=== PATIENT | male | born 1955 | race Caucasian/White ===

== ENCOUNTER → 2018-07-29 08:39 | Outpatient (CLI) | payer OTHER, SELFPAY ==
--- NOTE | 2018-07-29 09:02 | MR_ITS ---
MR head/brain wo/w con HISTORY: Severe headache, brain mass, history of colon cancer ITS.REASON: HEADACHE ORDERING PHYSICIAN: Referral Provider, PATIENT AGE: 63 years Comparison: None TECHNIQUE: Standard multiplanar multiecho sequences are performed without and with contrast enhancement. FINDINGS: No midline shift, mass effect, intracranial hemorrhage, or hydrocephalus is evident. No evidence of acute infarction. No enhancing lesions are evident. No intra or extra-axial mass apparent. Nonspecific periventricular and subcortical T2 white matter hyperintensities are present consistent with ischemic gliotic change from microvascular disease. The pituitary optic Anai and craniocervical junction have an unremarkable appearance. There is opacification of the left aspect of the frontal sinus and the sphenoid sinus as well as opacified bilateral ethmoid sinuses and moderate mucosal thickening of the maxillary sinuses. No mastoid effusion. IMPRESSION: 1. No acute intracranial findings. No evidence of metastatic disease. 2. Pansinusitis 3. 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
[2018-07-29 09:10] LABS: Blood Urea Nitrogen 16 mg/dL (7-18); Creatinine,Serum 0.89 mg/dL (0.70-1.30); Estimated Glomerular Filt Rate 86 ml/min (>60); GFR (African American) 104 ML/MIN (>60)
--- NOTE | 2018-07-29 10:00 | HMH.ITSHM ---
Current Home Medications as stated by this patient Holden Ashraf or access representative. []ATENOLOL WARFARIN ATORVASTATIN LISINOPRIL ALFUZOSIN FINASTERIDE RANITIDINE CHOLECALCIFEROL HYDROCODONE
== END ==
PROVIDERS: PCP Family Medicine
DX: R51 Headache (principal)
CPT/HCPCS: 36415; 70553; 82565; 84520; A9576

== ENCOUNTER 2022-11-15 14:58 | Observation (INO) | payer OTHER, SELFPAY ==
[2022-11-15] VITALS (10 sets, daily range): BP systolic 120–208; BP diastolic 61–117; PULSE 60–74; RESP 11–20; TEMP 36.6; O2SAT 98–100; BMI 39.0
--- NOTE | 2022-11-15 15:02 | PC.NURSE ---
BO STEELE at for patient eval
--- NOTE | 2022-11-15 15:04 | ECG_ITS ---
APPROVED REPORT Exam: Resting ECG HR:72 bpm ECG Measurements Heart Rate 72 AXES DC 188 P 66 QRSd 106 QRS 74 QT 372 T 75 QTc 396 Conclusion SINUS RHYTHM NORMAL ECG UNCONFIRMED REPORT Electronically signed by : Clay Pascual MD 11/16/2022 15:52:26
--- NOTE | 2022-11-15 15:08 | PC.NURSE ---
MARIVEL Hopkins called for a lunch tray
--- NOTE | 2022-11-15 15:09 | PC.NURSE ---
pt given apple juice and is drinking at this time
--- NOTE | 2022-11-15 15:10 | HMH.EDGENADL ---
Discharge Plan Disposition Condition: Good Chief Complaint: Hyper/Hypoglycemia Referrals Follow up/Referrals: Provider,Referral, [Primary Care Provider] - See instructions Clinical Impressions Clinical Impression: Accidental overdose of insulin, Hypoglycemia Instructions Patient Instructions: DI for Hyperglycemia -- Adult Discharge ED Provider: Izzy Metcalf Adult HPI General Chief complaint: Hyper/Hypoglycemia Stated complaint: medication error Time Seen by Provider: 11/15/22 15:00 Mode of Arrival: EMS Source of Information: Patient and EMS Limitations: No Limitations History of Present Illness HPI narrative: 67-year-old male presenting to the emergency department after accidental insulin overdose. Incident happened approximately 20 minutes prior to arrival. He was trying to take his migraine medication out of the fridge when he accidentally grabbed his sister's insulin pen. He believes he injected the full amount. Realized his mistake and called 911. When EMS arrived his blood glucose is 160 mg/dL. No medications given prior to arrival. He does not have diabetes. Complaining of dry mouth. Denies weakness, tremulousness, nausea, vomiting. Says this was unintentional. No thoughts of hurting himself. Related Data Allergies Allergy/AdvReac Type Severity Reaction Status Date / Time morphine Allergy Unknown Verified 11/15/22 15:17 [facility] Disclaimer: The information contained in this section may have been updated after the patient was seen, as this information can be updated by other users. Social History Smoking Status: Never smoker alcohol intake: never current occupational status: retired Travel in the last 8 weeks: None ROS Obtained: Yes All systems reviewed & no additional complaints except as documented Constitutional Constitutional: Denies chills, Denies fatigue and Denies headache(s) ENT Ears, Nose, Mouth, and Throat: Denies headache(s) Neurologic Neurologic: Denies headache(s) Endocrine Endocrine: Denies fatigue Physical Exam General General appearance: alert, in no apparent distress and other (Some repetitive questioning) Head Head exam: atraumatic Eye Eye exam: Present normal appearance and EOMI; Absent conjunctival redness ENT ENT exam: Present normal exam and normal oropharynx Respiratory Respiratory exam: Present normal lung sounds bilaterally; Absent respiratory distress or wheezes Cardiovascular Cardiovascular exam: Present regular rate and normal rhythm Abdominal Exam Abdominal exam: Present soft; Absent distention Extremities Exam Extremities exam: Present normal inspection Neurological Exam Neurological exam: Present alert, oriented X3 and other (Some repetitive questioning.) Psychiatric Psychiatric exam: Present normal affect and normal mood Skin Skin exam: Present warm and dry Medical Decision Making Medical Records Medical records reviewed: Yes I reviewed the patient's medical records. Deuce Inquiry Pt receiving controlled substance: No Vital Signs: 11/15/22 15:12 11/15/22 15:31 11/15/22 16:01 Temperature 97.9 F Temperature Source Oral Pulse Rate 71 68 Pulse Rate [Right] 74 Respiratory Rate 18 14 Blood Pressure 153/76 H 143/78 H Blood Pressure [Right Arm] 208/117 H Blood Pressure Mean 101 91 Blood Pressure Mean [Right Arm] 147 02 Sat by Pulse Oximetry 99 100 99 Oxygen Delivery Method Room Air Room Air Room Air 11/15/22 17:01 11/15/22 17:31 Temperature Temperature Source Pulse Rate 70 71 Pulse Rate [Right] Respiratory Rate Blood Pressure 130/70 147/70 H Blood Pressure [Right Arm] Blood Pressure Mean 90 80 Blood Pressure Mean [Right Arm] 02 Sat by Pulse Oximetry 100 100 Oxygen Delivery Method Room Air Room Air Lab Data Lab Results 11/15/22 15:04: WBC 7.6, RBC 4.55 L, Hgb 14.8, Hct 44.9, MCV 98.7 H, MCH 32.5 H, MCHC 33.0, RDW 13.5, Plt Count 260, MPV 7.8, Neut % (Auto) 60.6, Lymph % (Auto)
--- NOTE | 2022-11-15 15:18 | PC.NURSE ---
FS 14:59 = 36, VO for amp D50 and D10 @ 125ml/hr. Recheck FS @ 15:08 = 161. PO provided.
--- NOTE | 2022-11-15 15:27 | PC.NURSE ---
FS 111
--- NOTE | 2022-11-15 15:36 | PC.NURSE ---
MD notified of awaiting lab orders, however blood collected upon arrival and sent to lab.
--- NOTE | 2022-11-15 15:42 | PC.NURSE ---
FS 100 post-prandial
[2022-11-15 15:45] LABS: Basophils # 0.1 K/mm3 (0-0.2); Eosinophils # 0.3 K/mm3 (0.0-0.4); Eosinophils % 3.9 % (0.1-12.0); Hematocrit 44.9 % (42.0-52.0); Hemoglobin 14.8 g/dL (14.1-18.0); Lymphocytes # 2.3 K/mm3 (0.7-4.5); Lymphocytes % 30.5 % (10-50); Mean Corpuscular Hemoglobin 32.5 pg (27.0-31.2); Mean Corpuscular Volume 98.7 fl (80-94); Mean Platelet Volume 7.8 fl (7.4-10.4); Monocytes # 0.3 K/mm3 (0.1-1.0); Neutrophils # 4.6 K/mm3 (1.8-7.8); Neutrophils % 60.6 % (37.0-80.0); Platelet Count 260 K/mm3 (142-424); Red Blood Count 4.55 M/mm3 (4.60-6.20); Red Cell Distribution Width 13.5 % (11.5-17.5); White Blood Count 7.6 K/mm3 (4.8-10.8)
--- NOTE | 2022-11-15 15:46 | PC.NURSE ---
FS 100. notified. VO to increased D10 to 225ml/hr.
[2022-11-15 15:49] LABS: POC Glucose,Bedside 100 (70-110)
[2022-11-15 15:49] LABS: POC Glucose,Bedside 161 (70-110)
[2022-11-15 15:49] LABS: POC Glucose,Bedside 111 (70-110)
[2022-11-15 15:53] LABS: Chloride 105 mmol/L (98-107)
[2022-11-15 15:54] LABS: Sodium 141 mmol/L (136-145)
[2022-11-15 15:56] LABS: Alanine Aminotransferase 25 U/L (12-78); Aspartate Amino Transferase 41 U/L (17-59); Blood Urea Nitrogen 22 mg/dl (9-20); Creatinine Clearance Estimated 114 mL/min (50-200); Estimated Glomerular Filt Rate 66 ml/min (>60); GFR (African American) 80 ML/MIN (>60)
[2022-11-15 15:57] LABS: Albumin Level 4.1 g/dl (3.5-5.0); Albumin/Globulin Ratio 1.2 (1.1-1.8); Alkaline Phosphatase 56 U/L (38-126); Bilirubin,Total 0.6 mg/dl (0.2-1.3); Calcium 8.7 mg/dl (8.4-10.2); Globulin 3.5 g/dL (1.3-3.2); Total Protein,Serum 7.6 g/dl (6.3-8.2)
--- NOTE | 2022-11-15 15:57 | PC.NURSE ---
critical potassium level given to ER at this time
--- NOTE | 2022-11-15 15:57 | PC.NURSE ---
FS 94. notified. D10 titrated 250ml/hr
[2022-11-15 15:59] LABS: Glucose 26 mg/dl (74-100)
--- NOTE | 2022-11-15 15:59 | PC.NURSE ---
New VO for maintain D10 @ 250ml/hr. If FS below 75, give amp of D50. Sprite provided. Patient/ updated on plan of care.
[2022-11-15 16:03] LABS: POC Glucose,Bedside 94 (70-110)
[2022-11-15 16:03] LABS: Carbon Dioxide 30 mmol/L (22.0-30.0)
[2022-11-15 16:23] LABS: POC Glucose,Bedside 96 (70-110)
--- NOTE | 2022-11-15 16:34 | PC.NURSE ---
FS 95. Pt ambulated to bathroom with standby assist.
[2022-11-15 16:39] LABS: POC Glucose,Bedside 95 (70-110)
--- NOTE | 2022-11-15 17:02 | PC.NURSE ---
fs 90
[2022-11-15 17:08] LABS: POC Glucose,Bedside 90 (70-110)
--- NOTE | 2022-11-15 17:30 | PC.NURSE ---
swabbed pt for covid/flu sent to lab
[2022-11-15 17:34] LABS: Coronavirus 19, PCR Not Detected (NotDetected); Influenza A, PCR Not Detected (NotDetected); Influenza B, PCR Not Detected (NotDetected)
[2022-11-15 17:38] LABS: POC Glucose,Bedside 77 (70-110)
--- NOTE | 2022-11-15 17:41 | PC.NURSE ---
FS 77 Candy bar provided with orange juice.
[2022-11-15 18:09] LABS: POC Glucose,Bedside 82 (70-110)
--- NOTE | 2022-11-15 18:22 | PC.NURSE ---
FS 84
--- NOTE | 2022-11-15 18:22 | PC.NURSE ---
Patient updated on plan of care; admission.
[2022-11-15 18:28] LABS: POC Glucose,Bedside 84 (70-110)
--- NOTE | 2022-11-15 18:33 | PC.NURSE ---
Elly everett at bedside speaking to pt
--- NOTE | 2022-11-15 18:38 | PC.NURSE ---
[facility]
--- NOTE | 2022-11-15 18:47 | PC.NURSE ---
checked pt sugar it was 91 notified MARIVEL Saunders
--- NOTE | 2022-11-15 18:51 | PC.NURSE ---
Report provided to MARIVEL Alberto
[2022-11-15 18:52] LABS: POC Glucose,Bedside 91 (70-110)
[2022-11-15 19:12] LABS: POC Glucose,Bedside 88 (70-110)
--- NOTE | 2022-11-15 19:29 | PC.NURSE ---
Halie ORTA on 2nd floor notified of covid negative swab. States she is proceeding to ER to collect pt.
--- NOTE | 2022-11-15 19:43 | PC.NURSE ---
Samuel from poison control called for an update. Let her know that pt was being admitted to 2nd floor. Stated she would call the floor for further updates.
--- NOTE | 2022-11-15 20:05 | PC.NURSE ---
JOSE GUADALUPE Osorio at bedside speaking with pt
--- NOTE | 2022-11-15 20:28 | EXP.HP ---
History of Present Illness *Admission Date: 11/15/22 *Reason for visit:: Accidental overdose *History of present illness: This is a very pleasant 67-year-old male with a past medical history of PTSD, atrial fibrillation on Xarelto, hypertension, migraines who presents emergency department today with complaints of accidental overdose of insulin. Patient is not diabetic but was attempting to inject his Imitrex for his migraine and accidentally injected himself with his 's insulin pen. It is reported that the pen is approximately 500 units of insulin and he believes that he injected it in its entirety. As soon as patient realized mistake EMS was notified. Upon arrival to the emergency department his blood glucose was in the 20s. Poison center was called and recommends 8 hours of observation with frequent glucose checks and IV dextrose. Patient denies any confusion, diaphoresis, nausea with associated hypoglycemia. He reports that he feels at his baseline. He is admitted to the hospital service for further evaluation management. [facility] Disclaimer: The information contained in this section may have been updated after the patient was seen, as this information can be updated by other users. Social History (Updated 11/15/22 @ 18:00 by Izzy Metcalf DO) Smoking Status: Never smoker alcohol intake: never current occupational status: retired Travel in the last 8 weeks: None Review of Systems Review of Systems Review of systems:: pertinent systems reviewed and negative unless documented below Constitutional Constitutional: Denies headache(s) ENT Ears, Nose, Mouth, and Throat: Denies headache(s) *Neurologic Neurologic: Denies headache(s) Meds Home Medications and Allergies New Prescriptions to Start Prescriptions: Allergies Allergy/AdvReac Type Severity Reaction Status Date / Time morphine Allergy Unknown Verified 11/15/22 15:17 Exam Data for Last 24 hours Vital signs and Labs for Last 24 Hours: Temp Pulse Resp BP Pulse Ox 97.9 F 65 11 L 125/65 100 11/15/22 15:12 11/15/22 20:00 11/15/22 20:00 11/15/22 20:00 11/15/22 20:00 Laboratory Results - last 24 hr 11/15/22 15:04: WBC 7.6, RBC 4.55 L, Hgb 14.8, Hct 44.9, MCV 98.7 H, MCH 32.5 H, MCHC 33.0, RDW 13.5, Plt Count 260, MPV 7.8, Neut % (Auto) 60.6, Lymph % (Auto) 30.5, [place] % (Auto) 4.0, Eos % (Auto) 3.9, Baso % (Auto) 1.0, Neut # (Auto) 4.6, Lymph # (Auto) 2.3, [place] # (Auto) 0.3, Eos # (Auto) 0.3, Baso # (Auto) 0.1 11/15/22 15:04: Sodium 141, Potassium 3.0 L, Chloride 105, Carbon Dioxide 30, Anion Gap 9.0, BUN 22 H, Creatinine 1.10, Estimated Creat Clear 114, Estimated GFR 66, Est GFR ( Amer) 80, Glucose 26 L*, Calcium 8.7, Total Bilirubin 0.6, AST 41, ALT 25, Alkaline Phosphatase 56, Total Protein 7.6, Albumin 4.1, Globulin 3.5 H, Albumin/Globulin Ratio 1.2 11/15/22 15:11: POC Glucose 161 H 11/15/22 15:26: POC Glucose 111 H 11/15/22 15:41: POC Glucose 100 11/15/22 15:56: POC Glucose 94 11/15/22 16:15: POC Glucose 96 11/15/22 16:30: POC Glucose 95 11/15/22 17:01: POC Glucose 90 11/15/22 17:25: SARS-CoV-2 (PCR) Not detected, Influenza A Untype (PCR) Not detected, Influenza Type B (PCR) Not detected 11/15/22 17:30: POC Glucose 77 11/15/22 18:03: POC Glucose 82 11/15/22 18:20: POC Glucose 84 11/15/22 18:46: POC Glucose 91 11/15/22 19:05: POC Glucose 88 I & O for Last 24 hours: Intake & Output 11/12/22 11/13/22 11/14/22 11/15/22 23:59 23:59 23:59 23:59 Weight 127.006 kg Constitutional Constitutional: no acute distress *Routine HEENT Exam Head: Present normocephalic Eye: Present EOMI and PERRL ENT: Present mucous membranes moist *Routine Neck Exam Neck: Present supple; Absent lymphadenopathy *Routine Respiratory Exam Respiratory: Present CTA bilaterally *Routine Cardiovascular Exam Cardiovascular: Present RRR *Routine Abdominal Exam Abdominal: Present soft and normoactive bowel sounds; Absent tenderness *Routine R
[2022-11-15 20:56] LABS: POC Glucose,Bedside 78 (70-110)
--- NOTE | 2022-11-15 21:14 | PC.NURSE ---
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
--- NOTE | 2022-11-15 22:22 | PC.NURSE ---
pt had bipap on for approximately 15 minutes and pt requested it be removed, pt unable to wear that mask, pt states has ptsd and unable to wear this particular mask as his at home is much smaller and less noisy
[2022-11-15 22:38] LABS: Chloride 102 mmol/L (98-107); Potassium 3.3 mmoL/L (3.5-5.1); Sodium 140 mmol/L (136-145)
[2022-11-15 22:41] LABS: Anion Gap 12.3 mEq/L (5-15); Blood Urea Nitrogen 19 mg/dl (9-20); Calcium 8.5 mg/dl (8.4-10.2); Carbon Dioxide 29 mmol/L (22.0-30.0); Creatinine Clearance Estimated 125 mL/min (50-200); Estimated Glomerular Filt Rate 74 ml/min (>60); GFR (African American) 90 ML/MIN (>60); Glucose 51 mg/dl (74-100)
[2022-11-16] VITALS: BP 137/67; PULSE 74; PULSE 90; RESP 18; TEMP 36.7; O2SAT 98
[2022-11-16 02:00] VITALS: BP 141/70; PULSE 74; RESP 13; O2SAT 97
[2022-11-16 02:34] LABS: POC Glucose,Bedside 79 (70-110)
[2022-11-16 02:34] LABS: POC Glucose,Bedside 58 (70-110)
[2022-11-16 02:34] LABS: POC Glucose,Bedside 63 (70-110)
[2022-11-16 02:34] LABS: POC Glucose,Bedside 50 (70-110)
[2022-11-16 02:34] LABS: POC Glucose,Bedside 66 (70-110)
[2022-11-16 03:57] LABS: POC Glucose,Bedside 52 (70-110)
[2022-11-16 04:00] VITALS: BP 112/57; PULSE 70; RESP 23; TEMP 36.9; O2SAT 99; BMI 39.2
[2022-11-16 05:58] LABS: POC Glucose,Bedside 63 (70-110)
[2022-11-16 05:58] LABS: POC Glucose,Bedside 70 (70-110)
[2022-11-16 05:58] LABS: POC Glucose,Bedside 53 (70-110)
[2022-11-16 06:00] VITALS: BP 138/70; PULSE 62; RESP 20; O2SAT 96
[2022-11-16 06:15] LABS: Basophils # 0.1 K/mm3 (0-0.2); Basophils % 0.7 % (0.1-2.0); Eosinophils % 0.4 % (0.1-12.0); Hematocrit 42.4 % (42.0-52.0); Hemoglobin 13.5 g/dL (14.1-18.0); Lymphocytes # 0.6 K/mm3 (0.7-4.5); Lymphocytes % 7.2 % (10-50); Mean Corpuscular HGB Conc 31.9 g/dL (31.8-35.4); Mean Corpuscular Hemoglobin 32.4 pg (27.0-31.2); Mean Corpuscular Volume 101.5 fl (80-94); Mean Platelet Volume 7.3 fl (7.4-10.4); Monocytes # 0.4 K/mm3 (0.1-1.0); Monocytes % 4.5 % (1.7-9.3); Neutrophils # 7.4 K/mm3 (1.8-7.8); Neutrophils % 87.2 % (37.0-80.0); Platelet Count 231 K/mm3 (142-424); Red Blood Count 4.17 M/mm3 (4.60-6.20); Red Cell Distribution Width 13.4 % (11.5-17.5); White Blood Count 8.4 K/mm3 (4.8-10.8)
[2022-11-16 06:16] LABS: MANUAL DIFFERENTIAL MANUAL DIFFERENTIAL (MANUAL DIFF)
[2022-11-16 06:22] LABS: Anion Gap 8.4 mEq/L (5-15); Blood Urea Nitrogen 18 mg/dl (9-20); Calcium 8.3 mg/dl (8.4-10.2); Carbon Dioxide 25 mmol/L (22.0-30.0); Chloride 104 mmol/L (98-107); Creatinine Clearance Estimated 125 mL/min (50-200); Estimated Glomerular Filt Rate 84 ml/min (>60); GFR (African American) 101 ML/MIN (>60); Glucose 57 mg/dl (74-100); Potassium 3.4 mmoL/L (3.5-5.1); Sodium 134 mmol/L (136-145)
[2022-11-16 07:48] LABS: Lymphocytes % 5 % (10-50); Monocytes % 4 % (2-9); Neutrophils % 91 % (42-76); Platelet Estimate Normal; RBC Morphology Normal; Total Cells Counted 100
[2022-11-16 08:00] VITALS: BP 136/73; PULSE 62; PULSE 70; RESP 18; TEMP 36.7; O2SAT 100; O2SAT 99
[2022-11-16 10:00] VITALS: BP 116/62; PULSE 64; RESP 17; O2SAT 97
[2022-11-16 10:29] LABS: POC Glucose,Bedside 70 (70-110)
[2022-11-16 10:29] LABS: POC Glucose,Bedside 80 (70-110)
[2022-11-16 10:29] LABS: POC Glucose,Bedside 99 (70-110)
[2022-11-16 10:29] LABS: POC Glucose,Bedside 94 (70-110)
--- NOTE | 2022-11-16 11:03 | EXP.DC.SUM ---
General Admission date:: 11/15/22 Discharge date: 11/16/22 HPI HPI HPI: This is a very pleasant 67-year-old male with a past medical history of PTSD, atrial fibrillation on Xarelto, hypertension, migraines who presents emergency department today with complaints of accidental overdose of insulin. Patient is not diabetic but was attempting to inject his Imitrex for his migraine and accidentally injected himself with his 's insulin pen. It is reported that the pen is approximately 500 units of insulin and he believes that he injected it in its entirety. As soon as patient realized mistake EMS was notified. Upon arrival to the emergency department his blood glucose was in the 20s. Poison center was called and recommends 8 hours of observation with frequent glucose checks and IV dextrose. Patient denies any confusion, diaphoresis, nausea with associated hypoglycemia. He reports that he feels at his baseline. He is admitted to the hospital service for further evaluation management. Hospital Course Hospital Course Hospital Course: The patient was admitted to the medical unit with frequent glucose evaluations. He was treated with dextrose therapy. He was allowed to consume calories. His blood sugars improved and the patient identified improvement. He inquired about discharge home. He plans to be more cognizant of medication administration in the future. I have recommended a PCP follow-up in 1 week. Exam Data for Last 24 hours Vital signs and Labs for Last 24 Hours: Temp Pulse Resp BP Pulse Ox 98.1 F 64 17 116/62 97 11/16/22 08:00 11/16/22 10:00 11/16/22 10:00 11/16/22 10:00 11/16/22 10:00 Laboratory Results - last 24 hr 11/15/22 15:04: WBC 7.6, RBC 4.55 L, Hgb 14.8, Hct 44.9, MCV 98.7 H, MCH 32.5 H, MCHC 33.0, RDW 13.5, Plt Count 260, MPV 7.8, Neut % (Auto) 60.6, Lymph % (Auto) 30.5, [place] % (Auto) 4.0, Eos % (Auto) 3.9, Baso % (Auto) 1.0, Neut # (Auto) 4.6, Lymph # (Auto) 2.3, [place] # (Auto) 0.3, Eos # (Auto) 0.3, Baso # (Auto) 0.1 11/15/22 15:04: Sodium 141, Potassium 3.0 L, Chloride 105, Carbon Dioxide 30, Anion Gap 9.0, BUN 22 H, Creatinine 1.10, Estimated Creat Clear 114, Estimated GFR 66, Est GFR ( Amer) 80, Glucose 26 L*, Calcium 8.7, Total Bilirubin 0.6, AST 41, ALT 25, Alkaline Phosphatase 56, Total Protein 7.6, Albumin 4.1, Globulin 3.5 H, Albumin/Globulin Ratio 1.2 11/15/22 15:11: POC Glucose 161 H 11/15/22 15:26: POC Glucose 111 H 11/15/22 15:41: POC Glucose 100 11/15/22 15:56: POC Glucose 94 11/15/22 16:15: POC Glucose 96 11/15/22 16:30: POC Glucose 95 11/15/22 17:01: POC Glucose 90 11/15/22 17:25: SARS-CoV-2 (PCR) Not detected, Influenza A Untype (PCR) Not detected, Influenza Type B (PCR) Not detected 11/15/22 17:30: POC Glucose 77 11/15/22 18:03: POC Glucose 82 11/15/22 18:20: POC Glucose 84 11/15/22 18:46: POC Glucose 91 11/15/22 19:05: POC Glucose 88 11/15/22 19:51: POC Glucose 78 11/15/22 20:59: POC Glucose 66 L 11/15/22 22:13: Sodium 140, Potassium 3.3 L, Chloride 102, Carbon Dioxide 29, Anion Gap 12.3, BUN 19, Creatinine 1.00, Estimated Creat Clear 125, Estimated GFR 74, Est GFR ( Amer) 90, Glucose 51 L D, Calcium 8.5, Magnesium 2.0 11/15/22 23:00: POC Glucose 58 L 11/16/22 00:05: POC Glucose 50 L 11/16/22 01:15: POC Glucose 79 11/16/22 01:57: POC Glucose 63 L 11/16/22 03:11: POC Glucose 52 L 11/16/22 04:11: POC Glucose 53 L 11/16/22 05:07: POC Glucose 63 L 11/16/22 05:40: WBC 8.4, RBC 4.17 L, Hgb 13.5 L, Hct 42.4, MCV 101.5 H, MCH 32.4 H, MCHC 31.9, RDW 13.4, Plt Count 231, MPV 7.3 L, Neut % (Auto) 87.2 H, Lymph % (Auto) 7.2 L, [place] % (Auto) 4.5, Eos % (Auto) 0.4, Baso % (Auto) 0.7, Neut # (Auto) 7.4, Lymph # (Auto) 0.6 L, [place] # (Auto) 0.4, Eos # (Auto) 0.0, Baso # (Auto) 0.1, Total Counted 100, Neutrophils % (Manual) 91 H, Lymphocytes % (Manual) 5 L, Monocytes % (Manual) 4, Platelet Estimate Normal, RBC Morphology Normal 11/16/22 05:40: Sodium 134 L, Potassium 3.4 L, Chloride 104, Carbon
--- NOTE | 2022-11-16 11:13 | HMH.PHAINT1 ---
Pharmacy Intervention Comments: DISCHARGE MEDICATION COUNSELING PROVIDED. DISCUSSED THAT THERE WERE NO CHANGES TO CURRENT MEDICATION REGIMEN. PATIENT VERBALIZED NO QUESTIONS AT THIS TIME.
--- NOTE | 2022-11-19 13:56 | CARE MANAGER ---
Spoke with patient for post-discharge phone interview, no issues noted.
== END 2022-11-16 11:42 | disposition home or self-care (01) ==
LOC: ER 15:48 → 2ND 18:31
PROVIDERS: Nurse Practitioner Acute Care; Admitting Provider Family Medicine; Emergency Provider Emergency Medicine; Visit Provider Family Medicine
DX: T38.3X1A Poisoning by insulin and oral hypoglycemic [antidiabetic] drugs, accidental (unintentional), initial encounter (principal); E16.0 Drug-induced hypoglycemia without coma; I48.91 Unspecified atrial fibrillation; Z79.01 Long term (current) use of anticoagulants; F43.10 Post-traumatic stress disorder, unspecified; G43.909 Migraine, unspecified, not intractable, without status migrainosus; Y92.019 Unspecified place in single-family (private) house as the place of occurrence of the external cause
CPT/HCPCS: G0378; 36415; 80048; 80053; 82962; 83735; 85007; 85025; 93005; 99291; C9803; J2354; U0003; U0005

== ENCOUNTER 2023-10-29 14:34 | Outpatient (CLI) | payer OTHER, SELFPAY ==
--- NOTE | 2023-10-29 14:38 | CA_ITS ---
APPROVED REPORT EXAM: Comprehensive 2D, Doppler, and color-flow Echocardiogram Sales Operations Assistant: RENATO Singh, RVS Ht: 5 ft 10 in Wt: 370lbs BSA: 2.71 BP: 150/90 mmHg Indications: Hx-Afib s/p ablation 1 year ago, Ischemic heart disease, HTN, Obesity Echo Enhancing Agent Comments: TDS: Poor acoustics secondary to Body habitus 2D Dimensions IVSd 1.41 cm M: 0.6-1.2 LVEF (Visual) 55.00 % PWd 1.45 cm M: 0.6 - 1.2 LA Volume 112.40 mL LVDd 5.65 cm M: 4.2 - 5.9 LA Volume Index [id number] mL/m2 (M/F) 16-34 LVDs 3.27 cm M: 2.5 - 4.0 Left Atrium 4.97 cm M: 3.0 - 4.0 M-Mode Dimensions RVDd 1.65 cm (0.9-2.6) LA Diam 5.47 cm (1.9-4.0) LVDd 5.65 cm (3.5-5.7) LVDs 5.12 cm (3.5-5.7) IVSd 1.49 cm (0.6-1.1) PWd 1.09 cm (0.6-1.1) EF (Teich) 45.10% EPSs 1.03 cm FS 23.00% EDV (Teich) 227.50 mL TAPSE 3.01 (<1.7) ESV (Teich) 124.90 mL LV Diastology E Decel Time 213 (160-240 msec) E/A Ratio 2.43 MED A' 8.00 cm/s LAT A' 6.60 cm/s Aortic Valve SELENA Index 0.60 cm2/m2 AoV Peak Brendan. 164.0 (50-130 cm/s) AO Peak GR. 10.90 mmHg AO Mean GR. 5.40 (<5 mmHg) AO VTI 32.9 (18-25 cm) SELNEA (VTI) 1.67 (2.5-4.5 cm2) Mitral Valve MV A Velocity 44.0 (40-130 cm/s) E/A Ratio 2.43 Tricuspid Valve TR P. Velocity 293.00 cm/s RAP Estimate 10.00 mmHg RVSP 44.20 mmHg Left Ventricle The left ventricle is normal size. The left ventricular systolic function is normal. The left ventricular ejection fraction is within the normal range. There is normal left ventricular wall thickness. There is normal LV segmental wall motion. The left ventricular diastolic function is normal. LVEF is 55%. Right Ventricle The right ventricle is normal size. The right ventricular systolic function is normal. Atria The left atrium size is normal. The right atrium size is normal. The interatrial septum is not well-visualized. Aortic Valve The aortic valve is mildly thickened. There is no aortic valvular stenosis. No aortic regurgitation is present. Mitral Valve The mitral valve leaflets are mildly thickened. No evidence of mitral valve stenosis. Mild mitral regurgitation. Tricuspid Valve The tricuspid valve leaflets are thin and pliable. Mild tricuspid regurgitation. RVSP is 25 mmHg + RA pressure. Pulmonic Valve The pulmonary valve is normal in structure. Trace pulmonic regurgitation. Great Vessels The aortic root is normal in size. The ascending aorta is not well-visualized. The IVC is not well-visualized. Pericardium There is no pericardial effusion. Other Information Study Quality: Technically Difficult Conclusion Technically difficult study due to poor acoustic windows. Normal biventricular systolic function. Mild MR, mild TR. RVSP is 25 mmHg + RA pressure. Electronically signed by : Sravanthi Keenan MD 10/31/2023 09:54:19
== END 2023-10-29 23:59 ==
LOC: RT 14:35
PROVIDERS: PCP Internal Medicine; Visit Provider Chiropractor
DX: I25.9 Chronic ischemic heart disease, unspecified (principal)
CPT/HCPCS: 93306

== ENCOUNTER 2024-05-10 16:40 | Emergency (ER) | payer OTHER, SELFPAY ==
[2024-05-10 16:30] VITALS: BP 128/65; PULSE 88; RESP 20; TEMP 36.9; O2SAT 96; BMI 48.8
[2024-05-10 17:00] VITALS: BP 154/91
--- NOTE | 2024-05-10 17:15 | PC.NURSE ---
[facility] at [facility].
[2024-05-10 17:16] LABS: Basophils # 0.1 K/mm3 (0-0.2); Basophils % 0.6 % (0.1-2.0); Eosinophils # 0.2 K/mm3 (0.0-0.4); Eosinophils % 1.7 % (0.1-12.0); Hematocrit 39.2 % (42.0-52.0); Hemoglobin 12.5 g/dL (14.1-18.0); Lymphocytes # 1.7 K/mm3 (0.7-4.5); Lymphocytes % 16.5 % (10-50); Mean Corpuscular Hemoglobin 32.4 pg (27.0-31.2); Mean Corpuscular Volume 101.4 fl (80-94); Mean Platelet Volume 8.1 fl (7.4-10.4); Monocytes # 0.8 K/mm3 (0.1-1.0); Monocytes % 8.4 % (1.7-9.3); Neutrophils # 7.3 K/mm3 (1.8-7.8); Neutrophils % 72.8 % (37.0-80.0); Platelet Count 263 K/mm3 (142-424); Red Blood Count 3.86 M/mm3 (4.60-6.20); Red Cell Distribution Width 13.7 % (11.5-17.5)
--- NOTE | 2024-05-10 17:23 | PC.NURSE ---
[facility] order [facility]
[2024-05-10 17:31] VITALS: BP 137/79
[2024-05-10 17:32] LABS: Coronavirus 19, PCR Not Detected (NotDetected); Influenza A, PCR Not Detected (NotDetected); Influenza B, PCR Not Detected (NotDetected)
[2024-05-10 17:45] LABS: Albumin Level 3.5 g/dl (3.5-5.0); Chloride 108 mmol/L (98-107); Potassium 4.1 mmoL/L (3.5-5.1); Sodium 141 mmol/L (136-145)
[2024-05-10 17:48] LABS: Alanine Aminotransferase 19 U/L (12-78); Albumin/Globulin Ratio 1.1 (1.1-1.8); Alkaline Phosphatase 60 U/L (38-126); Anion Gap 7.1 mEq/L (5-15); Aspartate Amino Transferase 35 U/L (17-59); Bilirubin,Total 0.9 mg/dl (0.2-1.3); Blood Urea Nitrogen 25 mg/dl (9-20); Calcium 8.4 mg/dl (8.4-10.2); Carbon Dioxide 30 mmol/L (22.0-30.0); Creatinine Clearance Estimated 61 mL/min (50-200); Estimated Glomerular Filt Rate 60 ml/min (>60); GFR (African American) 72 ML/MIN (>60); Globulin 3.2 g/dL (1.3-3.2); Glucose 105 mg/dl (74-100); Total Protein,Serum 6.7 g/dl (6.3-8.2)
[2024-05-10 17:49] LABS: Lactic Acid 1.1 mmol/L (0.7-2.1)
--- NOTE | 2024-05-10 17:53 | HMH.EDGENADL ---
Discharge Plan Disposition Patient Disposition: Xfer Short-Term Hosp Chief Complaint: Back Pain/Injury Prescriptions Prescriptions: No Action amiodarone 200 mg Tablet 200 mg PO DAILY Xarelto 20 mg Tablet 20 mg PO QPMWITHMEAL Rx Instructions: must administer with evening meal hydrocodone-acetaminophen 10-325 mg Tablet 1 tab PO Q8HP PRN (Reason: Moderate Pain (Scale Score 5-6)) Referrals Follow up/Referrals: Otilio Mccoy MD [Primary Care Provider] - See instructions Clinical Impressions Clinical Impression: Bilateral leg weakness Instructions Patient Instructions: DI for Low Back Pain Print Language Print Language: Arabic Discharge ED Provider: Louie Knox General Adult HPI General Chief complaint: Back Pain/Injury Stated complaint: back pain Time Seen by Provider: 05/10/24 16:46 Mode of Arrival: EMS Source of Information: Patient and EMS Limitations: Physical Limitations Description of Symptoms (Recalled from ER Triage Doc. by RN): back pain History of Present Illness HPI narrative: Please note that above description of symptoms, in this electronic medical record under categorization of recalled from ER triage doctor by RN are reflective of an initial nursing assessment, however, is not reflective of my full history and physical exam that was personally taken and clarified. Consequentially, this preceding description of symptoms, which may include the patient's categorized chief complaint in the EMR, do not reflect my personal clinical impression, and the ultimate description of history of present illness and patient stated complaints should be deferred to this section of the note. Unless stated otherwise or congruent with this section of the note, additional signs, symptoms, or incongruence should be interpreted as inaccurate with my clinical impression. Related Data Home Medications ?Medication ?Instructions ?Recorded ?Confirmed amiodarone 200 mg tablet 200 mg PO DAILY HEART RATE 11/16/22 11/16/22 hydrocodone 10 mg-acetaminophen 1 tab PO Q8HP PRN Moderate Pain 11/16/22 11/16/22 325 mg tablet (Scale Score 5-6) rivaroxaban 20 mg tablet (Xarelto) 20 mg PO QPMWITHMEAL AFIB 11/16/22 11/16/22 Allergies Allergy/AdvReac Type Severity Reaction Status Date / Time morphine Allergy Unknown Verified 11/15/22 15:17 [facility] Disclaimer: The information contained in this section may have been updated after the patient was seen, as this information can be updated by other users. Medical History (Updated 05/10/24 @ 19:21 by Louie Knox MD) Pancreatitis Hypertension Surgical History History of cholecystectomy History of hernia surgery Social History (Updated 11/15/22 @ 21:14 by Belkis Patino, MARIVEL) Smoking Status: Never smoker alcohol intake: never current occupational status: retired Travel in the last 8 weeks: None ROS Obtained: Yes All systems reviewed & no additional complaints except as documented Physical Exam General General appearance: alert, in no apparent distress and obese Head Head exam: atraumatic and normocephalic Eye Eye exam: Present normal appearance, PERRL and EOMI Neck Neck exam: Present normal inspection, full ROM and trachea midline Respiratory Respiratory exam: Present normal lung sounds bilaterally; Absent respiratory distress, wheezes, stridor, accessory muscle use or prolonged expiratory phase Cardiovascular Cardiovascular exam: Present regular rate, normal rhythm and other (Pulses equal symmetric in upper and lower extremities) Abdominal Exam Abdominal exam: Present soft; Absent distention, tenderness or pulsatile mass Extremities Exam Extremities exam: Absent edema Back Exam Back exam: Present other (Midline lumbar incision clean, dry, intact with mark. No evidence of infection. Minimal tenderness at this site.) Neurological Exam Neurological exam:
[2024-05-10 17:54] LABS: Activated Partial Thrombo Time 26.1 seconds (22.8-30.6); INR 0.92 (0.9-1.1); Prothrombin Time 10.4 seconds (10.1-12.5)
[2024-05-10 17:56] LABS: Microscopic, Urine URINE MICROSCOPIC (MICROSCOPIC)
[2024-05-10 17:57] LABS: Appearance,Urine CLEAR (Clear); Bilirubin,Urine Negative (Negative); Blood, Urine Negative (Negative); Color,Urine YELLOW (Yellow); Glucose,Urine (UA) Negative (Negative); Ketones,Urine Negative (Negative); Leukocyte Esterase,Urine Negative (Negative); Nitrate,Urine Negative (Negative); Protein,Urine Negative (Negative); Urobilinogen,Urine 0.2 EU/dl (0.2)
[2024-05-10 18:01] VITALS: BP 145/83
[2024-05-10 18:08] LABS: RBC,Urine Occasional #/hpf (0-3); Squamous Epithelial Cell,Urine Occasional #/hpf (0-5); WBC,Urine Occasional #/hpf (0-3)
--- NOTE | 2024-05-10 18:24 | PC.NURSE ---
[facility]
[2024-05-10 18:31] VITALS: BP 157/80; PULSE 65; O2SAT 95
--- NOTE | 2024-05-10 19:45 | PC.NURSE ---
[facility]
--- NOTE | 2024-05-10 21:03 | PC.NURSE ---
spoke with maya at [facility] who states she is calling as the bed coordinator for today and that they are having trouble getting ahold of the attending for the hospital admission. she states that the neurosurgeon who sees the patient also has privileges at and suggests we attempt to transfer to there in order to not delay care of patient. notified MD. call placed to [facility] and spoke with dispatch who stated our ED dr could talk to Dr Gill who is covering transfers at this time.
--- NOTE | 2024-05-10 21:18 | PC.NURSE ---
speaking with [facility] at this time. dr susanna norton
--- NOTE | 2024-05-10 21:37 | PC.NURSE ---
Patient oxygen saturation noted to be 88% with adequate pleth, patient easily aroused, spo2 returned to 96%. Patient reports that he uses a CPAP at home with sleep. Notified provider, placed patient on 2LNC at this time.
--- NOTE | 2024-05-10 22:19 | PC.NURSE ---
Contacted [facility] transfer [facility] and spoke to Jacob who had just took over this patient's case. Jacob reports that he has spoken to the patient when the patient called himself as well and updated that there were outside problems regarding the expected attending and that the issue has been resolved at this time and that he was currently awaiting the clinical rehabilitation supervisor to assign a bed and would call us back as soon as a bed was assigned.
--- NOTE | 2024-05-10 23:05 | PC.NURSE ---
called report to Stephanie
--- NOTE | 2024-05-10 23:10 | PC.NURSE ---
Contacted [facility] in regards to a transfer for BLS
--- NOTE | 2024-05-10 23:16 | PC.NURSE ---
pt refused ochoa catheter to be placed
[2024-05-11 00:33] VITALS: BP 119/68; PULSE 78; RESP 18; TEMP 36.8; O2SAT 94
== END 2024-05-11 00:35 | disposition short-term general hospital (02) ==
PROVIDERS: Emergency Provider Emergency Medicine; PCP Pediatrics
DX: M54.9 Dorsalgia, unspecified (principal); R53.1 Weakness; I10 Essential (primary) hypertension; G89.29 Other chronic pain; I48.91 Unspecified atrial fibrillation
CPT/HCPCS: 80053; 81001; 83605; 85025; 85610; 85730; 87040; 87636; 96374; 96375; 99291; J1100; J1170; J2405

== ENCOUNTER 2024-07-22 10:00 | Outpatient (RCR) | payer OTHER, SELFPAY | END 2024-07-28 16:13 | disposition home or self-care (01) | LOC: PT 10:00 | PROVIDERS: Visit Provider Physician Assistant Medical | DX: M48.062 Spinal stenosis, lumbar region with neurogenic claudication (principal) | CPT/HCPCS: 97110; 97163 ==

== ENCOUNTER 2025-07-20 01:09 | Emergency (ER) | payer OTHER, SELFPAY ==
[2025-07-20] VITALS (37 sets, daily range): BP systolic 76–116; BP diastolic 45–74; PULSE 57–118; RESP 11–22; TEMP 36.6–36.8; O2SAT 94–99; BMI 44.1
--- NOTE | 2025-07-20 00:58 | ECG_ITS ---
APPROVED REPORT Exam: Resting ECG HR:120 bpm ECG Measurements Heart Rate 120 AXES QRSd 114 QRS 60 QT 340 T 52 QTc 411 Conclusion ATRIAL FIBRILLATION WITH RAPID VENTRICULAR RESPONSE MODERATE INTRAVENTRICULAR CONDUCTION DELAY [110+ ms QRS DURATION] ST DEPRESSION, CONSIDER SUBENDOCARDIAL INJURY [0.1+ mV ST DEPRESSION] -changes likely related to tachycardia No STEMI Electronically signed by : KRISTINA VUONG, 07/20/2025 05:10:08
--- NOTE | 2025-07-20 01:03 | XR_ITS ---
PROCEDURE INFORMATION: Exam: XR Chest Exam date and time: 07/20/2025 1:13 AM Age: 70 years old Clinical indication: Other: Dizziness TECHNIQUE: Imaging protocol: Radiologic exam of the chest. Views: 1 view. COMPARISON: No relevant prior studies available. FINDINGS: Lungs: Unremarkable. No consolidation. Pleural spaces: Unremarkable. No pleural effusion. No pneumothorax. Heart/Mediastinum: Unremarkable. No cardiomegaly. Bones/joints: Unremarkable. IMPRESSION: No acute findings.
--- OUTSIDE RECORDS SUMMARY | 2025-07-20 01:12 | XMS_ITS | Clinical Summary ---
Author Organization [facility] Address [address] [place] [address] Care Team Providers Care Sr. Payroll Manager Name Role Phone Herlinda Mccoy MD Primary Care Provider + [phone] Allergies Active Allergy Reactions Criticality Noted Date Comments Felodipine Other - please docum ent in the comment field Low 11/06/2005 Morphine Shortness of breath, Unknown - Patient states they do not know rxn details High 01/18/2020 Medications atorvastatin (Lipitor) 40 MG tablet Take 1 tablet (40 mg) by mouth every night. 0 Active cetirizine (ZyrTEC) 10 MG tablet Take 1 tablet (10 mg) by mouth 1 (one) time each day. 0 Active cholecalciferol (Vitamin D-3) 25 MCG (1000 UT) capsule Take 1 capsule (1,000 Units) by mouth 1 (one) time each day. 0 Active finasteride (Proscar) 5 MG tablet Take 1 tablet (5 mg) by mouth 1 (one) time each day. 0 Active furosemide (Lasix) 20 MG tabletIndicatio ns:Hold until Saturday01/28/23 Take 1.5 tablets (30 mg) by mouth 1 (one) time each day. 0 Active lisinopril 40 MG tabletIndicatio ns:Hold until Saturday01/25/23 1 tablet (40 mg) 2 (two) times a day. 0 Active potassium citrate CR (Urocit-K-10) 10 mEq ER tablet Take 2 tablets (20 mEq) by mouth 1 (one) time each day. 0 Active SUMAtriptan (Imitrex) 50 MG tablet Take 1 tablet (50 mg) by mouth 1 (one) time if needed. 0 Active rivaroxaban (Xarelto) 20 MG tablet Take 1 tablet (20 mg) by mouth 1 (one) time each day. 2 Active Multiple Vitamin (multivitamin) capsule Take 1 capsule by mouth 1 (one) time each day. Active nortriptyline (Pamelor) 10 MG capsule Take 1 capsule (10 mg) by mouth every night. 2 Active HYDROcodone-flaquita taminophen (Bonita) 10-325 MG tablet TAKE 1 TABLET BY MOUTH THREE TIMES A DAY NEEDED FOR PAIN. (USE SPARINGLY. SUPPLY MUST LAST 30 DAYS. CAUSES IMPAIRMENT, RECOMMEND NOT TO DRIVE ON THIS MEDICATION.) FOR PAIN. (USE SPARINGLY. SUPPLY MUST LAST 30 DAYS. CAUSES IMPAIRMENT, RECOMMEND NOT TO DRIVE ON THIS MEDICATION.) 2 Active chlorthalidone (Hygroton) 25 MG tabletIndicatio ns:Hold until your repeat BMP and you discuss those results with Dr. Mccoy. Take 1 tablet (25 mg) by mouth 1 (one) time each day. Active pregabalin (Lyrica) 100 MG capsule Take 1 capsule (100 mg) by mouth. 4 Active orlistat (Miguel) 60 MG capsule Take 1 capsule (60 mg) by mouth. 4 Active naloxone (Narcan) 4 mg/0.1 mL nasal spray 1. Give 1 spray in nostril for no/slow breathing or cannot wake after opioid use 2. Call 911 3. Repeat in other nostril if symptoms continue 4 Active lidocaine (Lidoderm) 5 % patch Place on the skin. 3 Active fluticasone (Flonase) 50 MCG/ACT nasal spray Administer into affected nostril(s). 4 Active Erenumab-aooe 140 MG/ML solution auto-injector Inject under the skin. 4 Active budesonide (Pulmicort) 0.5 MG/2ML nebulizer solution Inhale. 3 Active Active Problems Problem Noted Date Diagnosed Date Morbid obesity with body mass index (BMI) of 40. 0 or higher 03/15/2023 Unspecified atrial fibrillation 04/13/2022 Overview (04/13/2022): Added automatically from request for surgery [id number] AVM (arteriovenous malformation) 01/18/2020 Bleeding tendency 01/18/2020 Hyposmia 01/14/2019 Nasal polyp 01/14/2019 Nasal septal deviation 01/14/2019 Nasal turbinate hypertrophy 01/14/2019 Resolved Problems Problem Noted Date Diagnosed Date Resolved Date Chronic sinusitis 01/14/2019 06/06/2025 Immunizations Immunization Administration Dates Next Due DTP 02/24/2015 Influenza, Unspecified 06/14/2017,2015,07/26/2014,06/29,08/13/2012,07/16/2011,05/19/2009 ,11/04/2008,08/27/2007 Influenza, injectable, quadr ivalent, preservative free 05/30/2021,07/08/2020 Influenza, seasonal, injectable 07/14/2018 Sprig COVID-19 Vac cine (Purple Cap) 12+ 06/20/2021,10/20/2020,09/29/2020 Pneumococcal Polysaccharide PPV23 10/31/2021 Td (adult), unspecified 06/06/2005,09/16/1989 Tdap 02/24/2015 Zoster, Recombinant 04/24/2021,10/08/2019 Family History Medical History Relation Name Comments Other cancer Father Cardiac disorder Mother Conversions - Other Mother deafness or hearing loss Other cancer Mother Relation Name Status Comments Father Mother Social History Tobacco Use Types Packs/Day Years Used Date Smoking Tobacco: Never Smokeless Tobacco: Never Tobacco Cessation:Counseling Given: Not Answered Alcohol Use Standard Drinks/Week Comments No 0 (1 standard drink = 0.6 oz pur e alcohol) PHQ-2 Answer Date Recorded Patient Health Questionnaire-2 Score 0 04/22/2024 PHQ-2A Answer Date Recorded Patient Health Questionnaire-2 Score 0 04/17/2023 Sex and Gender Information Value Date Recorded Sex Assigned at Not on file Legal Sex Male 6:59 PM EDT Gender Identity Not on file Sexual Orientation Not on file Last Filed Vital Signs Vital Sign Reading Time Taken Comments Blood Pressure 175/106 07/03/2024 10:30 AM EDT Pulse 87 07/03/2024 10:30 AM EDT Temperature 36.6 C (97.8 F) 01/24/2023 11:29 AM EDT Respiratory Rate 18 01/24/2023 12:45 PM EDT Oxygen Saturation 96% 04/22/2024 10:45 AM EDT Inhaled Oxygen Concentration - - Weight 160 kg (353 lb 13.4 oz) 04/22/2024 10:45 AM EDT Height 180.3 cm (5' 11 ) 04/22/2024 10:45 AM EDT Body Mass Index 49.35 04/22/2024 10:45 AM EDT Plan of Treatment Upcoming Encounters Date Type Department Care Team (Late st Contact Info) Description 04/20/2026 12:40 PM EDT Office Visit [facility] [place] [address] [place] [address] Finesse Stone MD [address] [place] [address] Health Maintenance Due Date Last Done Comments [facility]-Hepatitis C Screening 1955 [facility]-/Child/Adol SDOH Screenings 1955 [facility]- SDOH Screenings 1971 [facility]-Adult SDOH Screenings 1971 CT Colonography 1998 Colonoscopy 1998 FIT-DNA 1998 FIT 1998 FOBT 1998 Sigmoidoscopy 1998 [facility]-Colorectal Cancer Screening 1998 [facility]-RSV Vaccine: 60+ Years or (1 - Risk 60-74 years 1-dose series) 2013 [facility]-DTaP,Tdap,and Td Vaccines (3 - Td or Tdap) 02/24/2025 02/24/2015, 02/24/2015, 06/06/2005, Additional history exists [facility]-Depression Screening 04/22/2025 04/22/2024 [id number] Vaccine ( season) 2025 06/20/2021, 10/20/2020, 09/29/2020 [facility]-Influenza Vaccine (#1) 05/17/202508/27, 05/30/2021, 07/08/2020, Additional history exists [facility]-Zoster Vaccines Completed 04/24/2021, 0 [facility]-Pneumococcal Vaccine: 50+ Years Completed 10/31/2021, 06/10/2019 [facility]-Obesity Intervention Completed 024, 04/17/2023, 03/15/2023, Additional history exists HPV Vaccines Aged Out No longer eligi ble based on patient's age to complete this topic [facility]-HIB Vaccines Aged Out No longer e ligible based on patient's age to complete this topic [facility]-Hepatitis A Vaccines Aged Out No longer eligible based on patient's age to complete this topic [facility]-IPV Vaccines Aged Out No longer e ligible based on patient's age to complete this topic [facility]-Rotavirus Vaccines Aged Out No lo nger eligible based on patient's age to complete this topic [place] [address] [address] [place] [address] MEDICARE Advance Directives * Full Code (Latest Code Status on File) Date Activated Date Inactivated Comments 01/24/2023 11:12 AM 01/24/2023 4:00 PM Question Answer Comments Patient has decision-making capacity? Yes Care Teams Sr. Payroll Manager Relationship Specialty Start Date End Date Herlinda Mccoy MD [address] [place] [address] PCP - General 04/13/22
--- NOTE | 2025-07-20 01:15 | ECG_ITS ---
APPROVED REPORT Exam: Resting ECG HR:120 bpm ECG Measurements Heart Rate 120 AXES QRSd 101 QRS 46 QT 341 T 47 QTc 412 Conclusion ATRIAL FIBRILLATION WITH RAPID VENTRICULAR RESPONSE ST DEPRESSION, CONSIDER SUBENDOCARDIAL INJURY [0.1+ mV ST DEPRESSION] ABNORMAL ECG - likely related to tachycardia No STEMI Electronically signed by : KRISTINA VUONG, 07/20/2025 05:10:34
[2025-07-20] MEDS: LACTATED RINGERS 1000ML 1,000 ML 999 ML IV (01:20)
[2025-07-20] MEDS: ASPIRIN 81MG CHEWABLE TABLET 324 MG PO (01:20)
--- NOTE | 2025-07-20 01:20 | PC.NURSE ---
late entry, while this RN at the nurses station charting patient calls out to report funny feeling again. ED provider aware and repeat EKG obtained. 500ml flui bag given to patient at this time. Pt reports feeling funny when he was sat up for chest XR. BP reading low and patient looses color.BP readings 100/68 while lying and then 76/45 once sitting up. Pt remains a gcs 15 the whole time.
--- NOTE | 2025-07-20 01:23 | PC.NURSE ---
Respiratory contacted and made aware of need for VBG
[2025-07-20 01:24] LABS: Hematocrit 46.0 % (42.0-52.0); Hemoglobin 15.6 g/dL (14.1-18.0); Immature Granulocytes % 0.3 %; Mean Corpuscular HGB Conc 33.9 g/dL (31.8-35.4); Mean Corpuscular Hemoglobin 32.3 pg (27.0-31.2); Mean Corpuscular Volume 95.2 fl (80-94); Nucleated Red Blood Cells % 0 %; Platelet Count 227 K/mm3 (142-424); Red Blood Count 4.83 M/mm3 (4.60-6.20); Red Cell Distribution Width-SD 48.0 fL; White Blood Count 7.6 K/mm3 (4.8-10.8)
[2025-07-20 01:27] LABS: VBG HCO3 22.6 mmol/L (23-30); VBG PCO2 38.0 mmol/L (35-51); VBG PH 7.39 mmol/L (7.31-7.41); VBG PO2 24.1 mmol/L (28-40)
[2025-07-20 01:29] LABS: Lactate Venous 2.5 mmol/L (0.4-2.0)
[2025-07-20 01:34] LABS: Microscopic, Urine URINE MICROSCOPIC (MICROSCOPIC)
[2025-07-20 01:35] LABS: Alanine Aminotransferase 21 U/L (12-78); Albumin Level 3.9 g/dl (3.5-5.0); Albumin/Globulin Ratio 1.1 (1.1-1.8); Alkaline Phosphatase 95 U/L (38-126); Anion Gap 12.6 mEq/L (5-15); Aspartate Amino Transferase 27 U/L (17-59); Bilirubin,Total 0.8 mg/dl (0.2-1.3); Blood Urea Nitrogen 29 mg/dl (9-20); Calcium 9.3 mg/dl (8.4-10.2); Carbon Dioxide 23 mmol/L (22.0-30.0); Chloride 104 mmol/L (98-107); Creatinine Clearance Estimated 65 mL/min (50-200); Creatinine,Serum 1.10 mg/dl (0.66-1.25); Estimated Glomerular Filt Rate 66 ml/min (>60); GFR (African American) 80 ML/MIN (>60); Globulin 3.5 g/dL (1.3-3.2); Glucose 74 mg/dl (74-100); Potassium 3.6 mmoL/L (3.5-5.1); Sodium 136 mmol/L (136-145); Total Protein,Serum 7.4 g/dl (6.3-8.2)
[2025-07-20 01:36] LABS: Color,Urine YELLOW (Yellow); Glucose,Urine (UA) TRACE (Negative); Ketones,Urine 2+ (Negative); Leukocyte Esterase,Urine Negative (Negative); PH,Urine 6.0 (5.0-8.5); Protein,Urine TRACE (Negative); Specific Gravity, Urine 1.015 (1.005-1.030); Urobilinogen,Urine 0.2 EU/dl (0.2)
[2025-07-20 01:37] LABS: Activated Partial Thrombo Time 29.6 seconds (22.8-30.6); INR 1.20 (0.9-1.1); Prothrombin Time 13.1 seconds (10.1-12.5)
[2025-07-20 01:47] LABS: NT Pro Brain Natriuretic Pep. 514 pg/mL (0-125)
[2025-07-20 01:52] LABS: Troponin I < 0.01 ng/ml (0.00-0.034)
[2025-07-20 01:55] LABS: D-Dimer 0.86 ug/mL (0.0-0.5)
--- NOTE | 2025-07-20 01:59 | CT_ITS ---
PROCEDURE INFORMATION: Exam: CTA Chest With Contrast Exam date and time: 07/20/2025 2:23 AM Age: 70 years old Clinical indication: Other: Tachy; Additional info: Orthostatic hypotension, tachy afib TECHNIQUE: Imaging protocol: Computed tomographic angiography of the chest with contrast. Exam focused on the arteries. 3D rendering (Not supervised by radiologist): MIP and/or 3D reconstructed images were created by the technologist. Radiation optimization: All CT scans at this facility use at least one of these dose optimization techniques: automated exposure control; mA and/or kV adjustment per patient size (includes targeted exams where dose is matched to clinical indication); or iterative reconstruction. Contrast material: ISOVUE; Contrast volume: 80 ml; Contrast route: INTRAVENOUS (IV); COMPARISON: CR XR CHEST PORTABLE 07/20/2025 1:13 AM FINDINGS: Pulmonary arteries: Normal. No pulmonary emboli. Aorta: Unremarkable. No aortic aneurysm. No aortic dissection. Lungs: Unremarkable. No consolidation. No masses. Pleural spaces: Unremarkable. No pneumothorax. No pleural effusion. Heart: No coronary calcification is noted. No cardiomegaly. No pericardial effusion. Coronary arteries: Small to moderate amount of coronary calcium. Lymph nodes: Unremarkable. No enlarged lymph nodes. Bones/joints: Unremarkable. No acute fracture. Soft tissues: Unremarkable. IMPRESSION: 1. No evidence of pulmonary embolus or other acute process. 2. Small to moderate amount of coronary calcium.
--- NOTE | 2025-07-20 02:04 | ED_ITS ---
Discharge Plan Disposition Chief Complaint: Weakness Prescriptions Prescriptions: No Action amiodarone 200 mg Tablet 200 mg PO DAILY Xarelto 20 mg Tablet 20 mg PO QPMWITHMEAL Rx Instructions: must administer with evening meal hydrocodone-acetaminophen 10-325 mg Tablet 1 tab PO Q8HP PRN (Reason: Moderate Pain (Scale Score 5-6)) Referrals Follow up/Referrals: Otilio Mccoy MD [Primary Care Provider, Pediatrics] - See instructions Clinical Impressions Clinical Impression: Atrial fibrillation, Orthostatic hypotension, Polypharmacy Stand Alone Forms Stand Alone Forms: Transfer Record - ED Print Language Print Language: Swedish Discharge ED Provider: Usama Riley General Adult HPI General Chief complaint: Weakness Stated complaint: low BP, high HR Time Seen by Provider: 07/20/25 01:10 Mode of Arrival: EMS Source of Information: Patient and EMS Description of Symptoms (Recalled from ER Triage Doc. by RN): Pt presents to the ed via ems with c/o low blood pressure and high heart rate. Pt reports feeling funny leading to him taking his BP with a low reading at home. Pt reports HX of Afib and compliant with medications. Pt denies chest pain or soa. Reports to not having his flud pills x2 days due to his low BP. History of Present Illness HPI narrative: 70-year-old male with history of A-fib on Xarelto as well as history of volume overload on Bumex presents to the ER for complaints of low blood pressure and high heart rate. Patient states he was feeling funny earlier and his blood pressure reading at home was very low. Patient states he was told a few days ago by his doctor to stop taking the Bumex because his blood pressure had been low and he denies any significant increase in the swelling of his legs or shortness of breath. He denies any chest pain. He also denies headache, numbness, tingling, weakness, nausea, vomiting, diarrhea, or abdominal pain. Denies any fevers or chills. No recent illness. Patient states anytime he moves he gets very lightheaded and his blood pressure drops. [facility] and states he would like to be admitted there if he has to be admitted. He denies any dysuria or hematuria. No other complaints or concerns. Related Data Home Medications ?Medication ?Instructions ?Recorded ?Confirmed amiodarone 200 mg tablet 200 mg PO DAILY HEART RATE 0 3/03/23 03/03/23 hydrocodone 10 mg-acetaminophen 1 tab PO Q8HP PRN Mode rate Pain 11/16/22 11/16/22 325 mg tablet (Scale Score 5-6) rivaroxaban 20 mg tablet (Xarelto) 20 mg PO QPMWITHMEA L AFIB 11/16/22 11/16/22 Allergies Allergy/AdvReac Type Severity Reaction Status Date / Time morphine Allergy Unknown Verified 11/15/22 15:17 [facility] Disclaimer: The information contained in this section may have been updated after the patient was seen, as this information can be updated by other users. Medical History (Updated 07/20/25 @ 04:57 by Usama Riley MD) Pancreatitis Hypertension Surgical History History of cholecystectomy History of hernia surgery Social History (Updated 11/15/22 @ 21:14 by Belkis Patino RN) Smoking Status: Never smoker alcohol intake: never current occupational status: retired Travel in the last 8 weeks?: None Have you lived/traveled outside US in past 30 days?: No Contact w/someone who lives/traveled outside US past 30 days?: No Exposure to someone with infectious disease in past 14 days?: No Do you have a fever (greater than 100.4 F or 38 C)?: No Have you tested positive for COVID-19?: No Exposed to someone with COVID-19 in past 14 days?: No Do you have a sore throat?: No Do you have a cough?: No Do you have any weakness?: No Do you have any diarrhea?: No Are you experiencing any unusual bleeding?: No Do you have any muscle aches/pain?: No Do you have any abdominal pain?: No Are you experiencing loss of taste or smell?: No Other Medical History Have you received the Flu Vaccine for this season: No Have you received the Pneumonia Vaccine: No ROS Obtained: Yes Systems reviewed as appropriate & no additional complaints except as documented Per HPI Physical Exam General General appearance: alert, in no apparent distress and obese Head Head exam: atraumatic and normocephalic Eye Eye exam: Present PERRL and EOMI ENT ENT exam: Present mucous membranes moist Neck Neck exam: Present normal inspection and full ROM Chest Chest inspection: Present symmetric chest wall rise Respiratory Respiratory exam: Absent respiratory distress or stridor Cardiovascular Cardiovascular exam: Present tachycardia and irregular rhythm Abdominal Exam Abdominal exam: Present soft; Absent distention, tenderness, guarding or rebound Extremities Exam Extremities exam: Present full ROM, normal capillary refill and edema (+ Bilateral lower extremity pitting edema) Neurological Exam Neurological exam: Present alert and oriented X3; Absent motor sensory deficit Psychiatric Psychiatric exam: Present normal affect and normal mood Skin Skin exam: Present warm and dry Medical Decision Making Medical Records Medical records reviewed: Yes I reviewed the patient's medical records. Screening: Per USPSTF and CDC recommendations, given the prevalence of disease in our region, it is our hospital?s policy to screen for HIV and viral Hepatitis for all patients aged 18 and over and those with ongoing risk factors. Deuce Inquiry Pt receiving controlled substance: No Vital Signs: 07/20/25 00:45 07/20/25 01:18 07/20/25 01:23 Temperature 98.2 F Temperature Source Oral Pulse Rate Pulse Rate [Radial] 116 H Respiratory Rate 18 Blood Pressure 100/68 L 76/45 L Blood Pressure [Right Arm] 110/74 Blood Pressure Mean Blood Pressure Mean [Right Arm] 86 Blood Pressure Position Supine Sitting Blood Pressure Position [Right Arm] Sitting 02 Sat by Pulse Oximetry 98 Oxygen Delivery Method Room Air 07/20/25 01:32 07/20/25 01:41 07/20/25 01:45 Temperature Temperature Source Pulse Rate 108 H 85 105 H Pulse Rate [Radial] Respiratory Rate 17 18 18 Blood Pressure 84/50 L 78/48 L 84/58 L Blood Pressure [Right Arm] Blood Pressure Mean Blood Pressure Mean [Right Arm] Blood Pressure Position Blood Pressure Position [Right Arm] 02 Sat by Pulse Oximetry 99 99 99 Oxygen Delivery Method 07/20/25 01:59 07/20/25 02:30 07/20/25 02:41 Temperature Temperature Source Pulse Rate 114 H 118 H 96 H Pulse Rate [Radial] Respiratory Rate 15 19 17 Blood Pressure 91/59 L 84/46 L 99/49 L Blood Pressure [Right Arm] Blood Pressure Mean Blood Pressure Mean [Right Arm] Blood Pressure Position Blood Pressure Position [Right Arm] 02 Sat by Pulse Oximetry 98 96 98 Oxygen Delivery Method 07/20/25 02:45 07/20/25 03:01 07/20/25 03:12 Temperature Temperature Source Pulse Rate 88 Pulse Rate [Radial] Respiratory Rate 22 19 20 Blood Pressure 91/55 L 93/66 L 108/62 L Blood Pressure [Right Arm] Blood Pressure Mean Blood Pressure Mean [Right Arm] Blood Pressure Position Blood Pressure Position [Right Arm] 02 Sat by Pulse Oximetry 94 L Oxygen Delivery Method 07/20/25 03:16 07/20/25 03:17 07/20/25 03:31 Temperature Temperature Source Pulse Rate 80 98 H 90 Pulse Rate [Radial] Respiratory Rate 21 20 19 Blood Pressure 93/60 L 104/56 L 93/52 L Blood Pressure [Right Arm] Blood Pressure Mean Blood Pressure Mean [Right Arm] Blood Pressure Position Blood Pressure Position [Right Arm] 02 Sat by Pulse Oximetry 96 96 94 L Oxygen Delivery Method 07/20/25 03:46 07/20/25 04:00 07/20/25 04:19 Temperature Temperature Source Pulse Rate 94 H 78 Pulse Rate [Radial] Respiratory Rate 18 15 15 Blood Pressure 106/58 L Blood Pressure [Right Arm] Blood Pressure Mean Blood Pressure Mean [Right Arm] Blood Pressure Position Blood Pressure Position [Right Arm] 02 Sat by Pulse Oximetry 94 L 96 Oxygen Delivery Method 07/20/25 04:31 07/20/25 04:46 07/20/25 05:01 Temperature Temperature Source Pulse Rate 70 70 68 Pulse Rate [Radial] Respiratory Rate 11 L 16 17 Blood Pressure 104/63 L 109/65 L 107/61 L Blood Pressure [Right Arm] Blood Pressure Mean Blood Pressure Mean [Right Arm] Blood Pressure Position Blood Pressure Position [Right Arm] 02 Sat by Pulse Oximetry 95 95 96 Oxygen Delivery Method 07/20/25 05:16 07/20/25 05:31 07/20/25 06:02 Temperature Temperature Source Pulse Rate 67 66 64 Pulse Rate [Radial] Respiratory Rate 18 11 L 12 Blood Pressure 114/70 116/71 92/54 L Blood Pressure [Right Arm] Blood Pressure Mean Blood Pressure Mean [Right Arm] Blood Pressure Position Blood Pressure Position [Right Arm] 02 Sat by Pulse Oximetry 95 98 98 Oxygen Delivery Method 07/20/25 06:15 07/20/25 06:30 07/20/25 06:45 Temperature Temperature Source Pulse Rate 57 L 58 L Pulse Rate [Radial] Respiratory Rate 15 16 16 Blood Pressure 96/60 L 97/59 L 105/59 L Blood Pressure [Right Arm] Blood Pressure Mean 69 Blood Pressure Mean [Right Arm] Blood Pressure Position Blood Pressure Position [Right Arm] 02 Sat by Pulse Oximetry 98 98 Oxygen Delivery Method Lab Data Lab Results 07/20/25 01:11: WBC 7.6, RBC 4.83, Hgb 15.6, Hct 46.0, MCV 95.2 H, MCH 32.3 H, MCHC 33.9, RDW 13.6, Plt Count 227, MPV 9.2, Neut % (Auto) 54.3, Lymph % (Auto) 32.1, [place] % (Auto) 8.4, Eos % (Auto) 4.1, Baso % (Auto) 0.8, Neut # (Auto) 4.2, Lymph # (Auto) 2.5, [place] # (Auto) 0.6, Eos # (Auto) 0.3, Baso # (Auto) 0.1, PT 13.1 H, INR 1.20 H, APTT 29.6, D-Dimer 0.86 H, Sodium 136, Potassium 3.6, Chloride 104, Carbon Dioxide 23, Anion Gap 12.6, BUN 29 H, Creatinine 1.10, Estimated Creat Clear 65, Estimated GFR 66, Est GFR ( Amer) 80, Glucose 74, Calcium 9.3, Total Bilirubin 0.8, AST 27, ALT 21, Alkaline Phosphatase 95, Troponin I < 0.01, NT-Pro-B Natriuret Pep 514 H, Total Protein 7.4, Albumin 3.9, Globulin 3.5 H, Albumin/Globulin Ratio 1.1 07/20/25 01:23: VBG pH 7.39, VBG pCO2 38.0, VBG pO2 24.1 L, VBG HCO3 22.6 L, VBG Total CO2 23.8, VBG O2 Saturation 47.9 L, VBG Base Excess -2.3, VBG Lactic Acid 2.5 H 07/20/25 01:27: Urine Color Yellow, Urine Appearance Clear, Urine pH 6.0, Ur Specific [place] 1.015, Urine Protein Trace, Urine Glucose (UA) Trace, Urine Ketones 2+, Urine Blood Negative, Urine Nitrate Negative, Urine Bilirubin Negative, Urine Urobilinogen 0.2, Ur Leukocyte Esterase Negative 07/20/25 04:10: Troponin I 0.03 07/20/25 01:11 07/20/25 01:11 Orders (Tests/Meds): ED MEDICATIONS Discontinued Medications Generic Name Dose Route Start Last Admin Trade Name Ethan PRN Reason Stop Dose Admin Aspirin 324 mg 07/20/25 01:03 07/20/25 01:20 Aspirin 81mg Chewable Tablet PO 07/20/25 01:04 324 mg ONCE ONE Administration Albumin Human 12.5 gm in 50 mls @ 100 mls/hr 07/20/25 02:04 07/20/25 02:50 Albumin 25% (12.5gm) Soln 50ml Bag IV 07/20/25 02:33 Infused ONCE ONE Infusion Lactated Ringer's 1,000 mls @ 999 mls/hr 07/20/25 04:59 07/20/25 05:03 Lactated Ringer's 1000 Ml Bag IV 07/20/25 05:59 Infused .Q1H1M ONE Infusion Iopamidol 80 ml 07/20/25 02:37 07/20/25 02:39 Iopamidol-370 (76%);100ml Bottle IV 07/20/25 02:38 80 ml ONCE ONE Administration Sodium Chloride 50 ml 07/20/25 02:37 07/20/25 02:39 0.9 % Sodium Chloride 50 Ml Vial IV 07/20/25 02:38 50 ml ONCE ONE Administration Sodium Chloride 10 ml 07/20/25 02:37 07/20/25 02:39 Sodium Chloride 0.9% 10ml Syr (Rad Only) IV 07/20/25 02:38 10 ml ONCE ONE Administration ORDERS Category Date Time Status CT angio chest PE protocol Stat Cat Scan 07/20/25 01:59 Taken POCUS Point of Care (ER Only) Stat Exams 07/20/25 02:06 Completed XR chest portable Stat Exams 07/20/25 01:03 Completed Activated Partial Thrombo Time Stat Lab 07/20/25 01:11 Completed Complete Blood Count Auto Diff Stat Lab 07/20/25 01:11 Completed Comprehensive Metabolic Panel Stat Lab 07/20/25 01:11 Completed D-Dimer Stat Lab 07/20/25 01:11 Completed NT Pro Brain Natriuretic Pep. Stat Lab 07/20/25 01:11 Completed Prothrombin Time INR Stat Lab 07/20/25 01:11 Completed Troponin I Q3H Lab 07/20/25 04:10 Completed Troponin I Q3H Lab 07/20/25 07:15 Ordered Troponin I Stat Lab 07/20/25 01:11 Completed UA [Urinalysis and Microscopic] Stat Lab 07/20/25 01:27 Completed Venous Blood Gas Stat RT 07/20/25 01:23 Completed Medical Decision Narrative: In summary, this 70-year-old male with comorbidities described in the HPI presents to the emergency department today with lightheadedness, feeling funny , low blood pressure, high heart rate. On initial evaluation patient is tachycardic with irregular rhythm, borderline hypotensive, afebrile, GCS 15, saturating well on room air, patient does have peripheral edema, benign abdominal exam, no other acute findings. Differential diagnosis includes but is not limited to A-fib RVR, orthostatic hypotension, hypovolemia, anemia, pulmonary edema, ACS, PE, electrolyte abnormality, polypharmacy, among others. Based on these concerns, I ordered hematologic and serum labs, cardiac workup, D-dimer, chest x-ray, urinalysis. Initial ECG personally interpreted demonstrates A-fib RVR rate 120, normal axis, normal QTc, patient has diffuse ST depressions which I believe is likely related to the patient's tachycardic rate, no STEMI. Repeat ECG was performed because patient had gone from laying to sitting for chest x-ray and felt very lightheaded. His heart rate jumped up and his blood pressure dropped to the 70s. This also demonstrates on my personal interpretation A-fib RVR rate 120, normal axis, normal QTc, no STEMI or dynamic changes. Patient received 500 mL bolus of IV fluids initially for treatment. Labs personally reviewed demonstrate no leukocytosis or anemia, hemoglobin 15.6, normal platelets, PT/INR slightly elevated but nonactionable, APTT normal, D- dimer 0.86. With patient's symptoms I am going to pursue CTA PE so this was added to workup. VBG with normal pH, no hypercarbia, lactic on VBG 2.5. CMP with prerenal azotemia. Patient is being treated initially with 500 mL IV fluid bolus. His albumin is at the lower end of normal and he appears to be intravascularly depleted though he has peripheral edema so he did receive IV albumin. BNP is 514, no comparison from prior. UA negative for findings of infection. XR personally interpreted demonstrates no acute intrathoracic abnormality, see radiology read final interpretation. CT angiography PE personally interpreted demonstrates no large segmental or subsegmental PE, see radiology read for final interpretation. Later in the encounter after patient had been treated with fluids, albumin, he was more hemodynamically stable, now ECG personally interpreted demonstrates A- fib, rate 98, normal axis, normal QTc, ST depressions have resolved as his rate has slowed, no STEMI. His blood pressure is better but he has tolerated IV fluids well and since he is prerenal I am going to give him the other 500 mL. In total he will have received 1 L of IV fluids as well as 12.5 albumin. I attempted to perform [id number] ultrasound of the heart but patient has poor acoustic windows throughout due to body habitus and I was not able to capture any images of the heart. Patient feels significantly better. He is still having orthostatic changes anytime he moves but he feels improved. I believe patient likely has complications from his numerous medications including polypharmacy as well as him recently losing weight on Zepbound which is improving his overall health but probably changing the amount of medication he needs to control his chronic problems. I believe he requires admission and patient and family are agreeable to this. I reach out to the [facility] and spoke with Dr. Patricia with the hospitalist team. We reviewed the patient's presentation, labs, imaging, interventions, and current status. He graciously accepted the patient for transfer to the [facility]. Prior to transfer patient has stayed in the ER while awaiting transportation availability. He has remained stable. His blood pressures have varied from systolics in the low 100s to systolics in the low 90s. He reports blood pressure at home has consistently been 90/50 recently which is why he was taken off the Bumex. He states he does not feel bad with his blood pressure like that, but when it was down in the 60s and 70s at home he felt really bad last night. He is conversational and states he feels well with BP currently in the 90s. His repeat troponin is 0.03, this is still within normal limits but a slight increase from prior. He has no chest pain and states he feels significantly improved compared to arrival. I do not believe this requires acute intervention and I suspect this is because patient was in RVR prior to and at the time of arrival. Patient was reassessed and continues to be a GCS 15, hemodynamically stable, resting comfortably. He was transferred in stable condition. Critical Care Critical Care Time Critical Care Time: No
[2025-07-20] MEDS: ALBUMIN HUMAN 12.5 GM/50 ML BAG IV (02:11)
[2025-07-20 02:17] LABS: Bilirubin,Urine Negative (Negative)
[2025-07-20] MEDS: SODIUM CHLORIDE 0.9% 10ML SYR (RAD ONLY) 10 ML IV (02:39)
[2025-07-20] MEDS: IOPAMIDOL-370 (76%);100ML BOTTLE 80 ML IV (02:39)
[2025-07-20] MEDS: 0.9 % SODIUM CHLORIDE 50 ML VIAL IV (02:39)
--- NOTE | 2025-07-20 04:11 | PC.NURSE ---
2nd wan collected and sent to the lab
--- NOTE | 2025-07-20 04:17 | PC.NURSE ---
[facility] digital project [facility], awaiting a call back at this time.
--- NOTE | 2025-07-20 04:26 | PC.NURSE ---
Addendum entered by Lydia Null RN 07/20/25 04:28: [facility] Patricia. [facility]. Original Note: ed provider on the phone with the [facility] discussing patient's case for possible transfer.
[2025-07-20 04:43] LABS: Troponin I 0.03 ng/ml (0.00-0.034)
[2025-07-20 05:29] LABS: Reflex Lactic Add Lactic Reflex
--- NOTE | 2025-07-20 05:45 | PC.NURSE ---
Report given to Kim ORTA at the [facility]
--- NOTE | 2025-07-20 07:20 | PC.NURSE ---
spoke with EMS regarding transfer
[2025-07-20 08:16] LABS: Troponin I 0.06 ng/ml (0.00-0.034)
--- NOTE | 2025-07-20 09:16 | PC.NURSE ---
[facility]oke with [facility] to let [facility] know [facility] is here to get pt
== END 2025-07-20 09:19 | disposition short-term general hospital (02) ==
PROVIDERS: Emergency Provider Emergency Medicine; PCP Pediatrics
DX: I48.91 Unspecified atrial fibrillation (principal); I95.1 Orthostatic hypotension; R74.02 Elevation of levels of lactic acid dehydrogenase [LDH]; E88.09 Other disorders of plasma-protein metabolism, not elsewhere classified; R60.0 Localized edema; R00.0 Tachycardia, unspecified; I10 Essential (primary) hypertension
CPT/HCPCS: 71045; 71275; 80053; 81001; 82803; 83880; 84484; 85025; 85378; 85610; 85730; 93005; 96361; 96365; 99285; J7120; P9047; Q9967